=== PATIENT | female | born 1955 | race Caucasian/White ===

== ENCOUNTER 2022-01-28 06:24 | Observation (INO) | payer OTHER ==
[2022-01-26 10:36] LABS: BASOPHILS % (AUTO) 0.8 % (0.0-5.0); LYMPHOCYTES % (AUTO) 20.9 % (21.0-51.0); MEAN CORPUSCULAR HEMOGLOBIN 32.6 pg (27.0-33.0); MEAN CORPUSCULAR HGB CONC 33.5 g/dL (32.0-36.0); MEAN CORPUSCULAR VOLUME 97.5 fL (79-99); MONOCYTES % (AUTO) 4.7 % (3.0-13.0); NEUTROPHILS % (AUTO) 72.6 % (40.0-77.0); PLATELET COUNT (AUTO) 205 K/uL (130-400); RED BLOOD CELL COUNT(AUTO) 4.72 MIL/uL (4.00-5.50); RED CELL DISTRIBUTION WIDTH 14.2 % (11.0-15.5); WHITE BLOOD COUNT (AUTO) 7.2 K/uL (4.8-10.8)
[2022-01-26 10:44] LABS: CREATININE 0.9 mg/dL (0.5-1.5); POTASSIUM 3.7 mmol/L (3.5-5.1)
[2022-01-26 10:48] LABS: INR 1.04 (0.85-1.15); PROTHROMBIN TIME 11.3 SEC (9.6-11.6)
[2022-01-26 10:48] LABS: APPEARANCE,URINE Cloudy (CLEAR); BILIRUBIN,URINE Negative (NEGATIVE); COLOR,URINE Dark Yellow (YELLOW); GLUCOSE, URINE (UA) Negative (NEGATIVE); KETONES,URINE Trace mg/dL (NEGATIVE); LEUKOCYTE ESTERASE ,URINE Moderate (NEGATIVE); NITRATE,URINE Negative (NEGATIVE); OCCULT BLOOD,URINE Nonhemolyzed Trace (NEGATIVE); PROTEIN,URINE Trace mg/dL (NEGATIVE)
[2022-01-26 11:27] LABS: BACTERIA,URINE Rare /HPF (None Seen); RBC,URINE 0-1 /HPF (0-1); SQUAMOUS EPITHELIAL CELL,UR Few /HPF (0-2)
[2022-01-27 09:41] VITALS: BP 156/84
[~2022-01-28] VITALS: Ht 165.1 cm; Wt 74.4 kg
[2022-01-28] VITALS (24 sets, daily range): BP systolic 118–176; BP diastolic 51–101
[2022-01-28] MEDS: CEFAZOLIN SODIUM 1 GM VIAL IVP SCH ×2 (06:00→10:39)
[~2022-01-28 06:24] MED LIST: IBUP-2077 PO
[2022-01-28] MEDS ORDERED: LACTATED RINGERS 1000ML 1,000 ML IV ONE (07:37)
[2022-01-28] MEDS: GENTAMICIN SULFATE 240 MG in 0.9%NACL 100ML 100 ML IV SCH ×2 (07:55→15:26)
[2022-01-28] MEDS ORDERED: KETOROLAC 15MG/ML VIAL (15MG/ML) ONE (08:31)
[2022-01-28] MEDS ORDERED: ACETAMINOPHEN 500 MG TABLET ONE (08:31)
[2022-01-28] MEDS ORDERED: CELECOXIB 200 MG CAP ONE (08:32)
[2022-01-28] MEDS ORDERED: METOCLOPRAMIDE 10 MG/2 ML VIAL ONE (08:33)
[2022-01-28] MEDS ORDERED: TRANEXAMIC ACID 1000MG/10ML ONE ×2 (09:14→14:30)
[2022-01-28] MEDS ORDERED: SUCCINYLCHOLINE 200MG/10ML SYR ONE (10:03)
[2022-01-28] MEDS ORDERED: LIDOCAINE PF 100MG/5ML (2%) SYRINGE 5ML ONE ×2 (10:03→10:05)
[2022-01-28] MEDS ORDERED: SUCCINYLCHOLINE CHLORIDE 20 MG/ML 10 ML VIAL ONE ×2 (10:03→10:05)
[2022-01-28] MEDS ORDERED: GLYCOPYRROLATE 1 MG/5 ML SYRINGE ONE (10:04)
[2022-01-28] MEDS ORDERED: MIDAZOLAM HCL 1 MG/ML 2ML VIAL ONE (10:04)
[2022-01-28] MEDS ORDERED: PROPOFOL 10 MG/ML 20ML VIAL IV ONE (10:04)
[2022-01-28] MEDS ORDERED: ONDANSETRON 4MG INJ ONE (10:04)
[2022-01-28] MEDS ORDERED: NEOSTIGMINE 5MG/5ML SYR IV ONE (10:04)
[2022-01-28] MEDS ORDERED: FENTANYL CITRATE PF 50 MCG/1 ML 2ML VIAL ONE (10:05)
[2022-01-28] MEDS ORDERED: ROCURONIUM 10MG/1ML SYR 10 MG/ML ML ONE (10:05)
[2022-01-28] MEDS ORDERED: ROPIVACAINE 0.5% 5MG/ML 30ML IJ ONE (10:06)
[2022-01-28] MEDS: CEFAZOLIN SODIUM 1 GM VIAL ONE ×2 (11:22→11:24)
[2022-01-28] MEDS ORDERED: OXYCODONE HCL 5 MG TAB PO PRN ×2 (13:30)
[2022-01-28] MEDS: ACETAMINOPHEN 500 MG TABLET PO SCH ×2 (13:30→21:50)
[2022-01-28] MEDS ORDERED: TRAMADOL HCL 50 MG TABLET PO PRN (13:30)
[2022-01-28] MEDS ORDERED: KETOROLAC 15MG/ML VIAL (15MG/ML) IV PRN (13:30)
[2022-01-28] MEDS: 0.9%NACL 1000ML 1,000 ML IV SCH ×2 (13:30→23:30)
[2022-01-28] MEDS ORDERED: ONDANSETRON 4MG INJ IVP PRN (13:30)
[2022-01-28] MEDS ORDERED: KCL 20 MEQ ERTAB PO PRN (13:30)
[2022-01-28] MEDS ORDERED: DiphenhydrAMINE HCL 50 MG/ML VIAL IVP PRN (13:30)
[2022-01-28] MEDS ORDERED: POTASSIUM CHLORIDE 10% ELIXIR 20 MEQ/15 ML UDCUP PO PRN (13:30)
[2022-01-28] MEDS ORDERED: LIDOCAINE HCL-MPF 1% 2ML VIAL IV PRN (13:30)
[2022-01-28] MEDS ORDERED: POTASSIUM CHLORIDE 20MEQ/100ML 100 ML IV PRN (13:30)
[2022-01-28] MEDS ORDERED: FERROUS FUMARATE 324 MG TABLET PO PRN (13:30)
[2022-01-28] MEDS ORDERED: LABETALOL 20MG SYG IV ONE (14:18)
[2022-01-28] MEDS ORDERED: MEPERIDINE-PF 25 MG/ML SYG ONE (14:39)
[2022-01-28] MEDS ORDERED: CEFAZOLIN SODIUM 1 GM VIAL IVP SCH (18:30)
[2022-01-28] MEDS: ASPIRIN 81 MG EC TAB PO SCH (21:48)
[2022-01-28] MEDS: CELECOXIB 200 MG CAP PO SCH (21:48)
[2022-01-28] MEDS: FAMOTIDINE 20MG TAB PO SCH (21:48)
[2022-01-28] MEDS: PREGABALIN 25 MG CAP PO SCH (21:48)
[2022-01-29] VITALS: BP 130/78
[2022-01-29 04:00] VITALS: BP 140/84
[2022-01-29 05:03] LABS: HEMATOCRIT 31.1 % (36-48); MEAN CORPUSCULAR HEMOGLOBIN 32.7 pg (27.0-33.0); MEAN CORPUSCULAR HGB CONC 34.4 g/dL (32.0-36.0); MEAN CORPUSCULAR VOLUME 95.1 fL (79-99); RED BLOOD CELL COUNT(AUTO) 3.27 MIL/uL (4.00-5.50); RED CELL DISTRIBUTION WIDTH 14.3 % (11.0-15.5)
[2022-01-29 05:05] LABS: CREATININE 0.8 mg/dL (0.5-1.5); POTASSIUM 3.6 mmol/L (3.5-5.1)
[2022-01-29] MEDS: ACETAMINOPHEN 500 MG TABLET PO SCH ×3 (05:30→22:00)
[2022-01-29 07:30] VITALS: BP 151/72
[2022-01-29] MEDS: FAMOTIDINE 20MG TAB PO SCH ×2 (08:50→21:58)
[2022-01-29] MEDS: ASPIRIN 81 MG EC TAB PO SCH ×2 (08:50→21:58)
[2022-01-29] MEDS: POLYETHYLENE GLYCOL 3350 17 GM POWD.PACK PO SCH (08:51)
[2022-01-29] MEDS: CELECOXIB 200 MG CAP PO SCH ×2 (08:51→21:58)
[2022-01-29] MEDS: PREGABALIN 25 MG CAP PO SCH ×2 (08:51→21:58)
[2022-01-29] MEDS: CALCIUM CARB 500MG PO PRN (08:51)
[2022-01-29] MEDS: 0.9%NACL 1000ML 1,000 ML IV SCH (08:56)
[2022-01-29 11:00] VITALS: BP 138/77
[2022-01-29 16:00] VITALS: BP 139/78
[2022-01-29 20:00] VITALS: BP 149/82
[2022-01-30] VITALS: BP 113/76
[2022-01-30 04:00] VITALS: BP 133/86
[2022-01-30] MEDS: ACETAMINOPHEN 500 MG TABLET PO SCH ×3 (05:38→20:56)
[2022-01-30] MEDS: CALCIUM CARB 500MG PO PRN (05:38)
[2022-01-30 07:30] VITALS: BP 152/73
[2022-01-30] MEDS: ASPIRIN 81 MG EC TAB PO SCH ×2 (09:02→20:50)
[2022-01-30] MEDS: CELECOXIB 200 MG CAP PO SCH ×2 (09:02→20:50)
[2022-01-30] MEDS: POLYETHYLENE GLYCOL 3350 17 GM POWD.PACK PO SCH (09:02)
[2022-01-30] MEDS: FAMOTIDINE 20MG TAB PO SCH ×2 (09:02→20:50)
[2022-01-30] MEDS: PREGABALIN 25 MG CAP PO SCH ×2 (09:03→20:50)
[2022-01-30 11:00] VITALS: BP 121/78
[2022-01-30 16:00] VITALS: BP 127/82
[2022-01-30] MEDS ORDERED: AEC81 PO (20:27)
[2022-01-30] MEDS ORDERED: HYDR-4060 PO (20:27)
[2022-01-31] MEDS ORDERED: BISACODYL 10 MG SUPP.RECT RC PRN (13:30)
== END 2022-01-30 21:17 | disposition home health service (06) ==
LOC: DAH 06:24 → DAHIP 06:25 → DAH 06:25 → 4BH 14:55
PROVIDERS: ADMIT Orthopaedic Surgery; ATTEND Orthopaedic Surgery
DX: M16.12 Unilateral primary osteoarthritis, left hip (principal); Z20.822 Contact with and (suspected) exposure to COVID-19; M21.70 Unequal limb length (acquired), unspecified site; G89.29 Other chronic pain; M25.552 Pain in left hip; D62 Acute posthemorrhagic anemia; F17.200 Nicotine dependence, unspecified, uncomplicated; Z79.82 Long term (current) use of aspirin; Z96.641 Presence of right artificial hip joint; Z79.899 Other long term (current) drug therapy; Z98.890 Other specified postprocedural states
CPT/HCPCS: 27130; 36415 ×2; 64450; 73503; 76942; 80048 ×2; 81001; 85025; 85027; 85610; 87088; 87635; 87641; 96365; 96366; 96375 ×3; 97039 ×3; 97116 ×3; 97161; 97530; A4213; A4215; A4221; A4222; A4223; A4649 ×5; A4657; A4663; A9272; C1713; C1776; C9803; G0378 ×53; J0330 ×3; J0690 ×4; J1580; J1885; J2001 ×2; J2175; J2250; J2405 ×2; J2704; J2710; J2765; J2795; J3010; J3490 ×3; J7030; J7120; 96374

== ENCOUNTER 2025-04-29 17:21 | Emergency (ER) | payer OTHER ==
[~2025-04-29] VITALS: Ht 165.1 cm; Wt 70.3 kg
[~2025-04-29 17:21] MED LIST changes: +AEC81 PO; +HYDR-4060 PO; -IBUP-2077 PO
[2025-04-29 17:45] VITALS: BP 134/68; PULSE 82; RESP 16; TEMP 98.3; O2SAT 98
--- NOTE | 2025-04-29 17:48 | ERN ---
General Chief Complaint: FOOT INJURY/PAIN Stated Complaint: RT FOOT PAIN Time Seen by MD: 17:22 Time Seen by Midlevel: 17:22 Source: patient History of Present Illness Initial Comments The patient is a 70-year-old female presenting to the emergency department with pain to her right lateral foot. Patient states she accidentally twisted her ankle several days ago and now has pain to the area. She denies any other symptoms. Denies any other injury. Allergies: Coded Allergies: No Known Drug Allergies (Verified Allergy, Unknown, 01/26/22) Home Meds Active Scripts Ibuprofen (Ibuprofen 800 mg Tab) 800 Mg Tab, 800 MG PO TID PRN for PAIN LEVEL 1 TO 5 for 5 Days, #15 TAB 0 Refills Prov:SOLE PARISI 04/29/25 Aspirin (ASPIRIN 81 MG ECTAB) 81 Mg Ectab, 81 MG PO BID, #60 TAB.EC 0 Refills Prov:SHANICE BOYER MD 01/30/22 Hydrocodone/Acetaminophen (Hydrocodon-Acetaminophen 5-325) 1 Each Tablet, 1-2 EA CH PO Q6HPRN PRN for ACUTE POST-OP PAIN(G89.18), #56 TAB 0 Refills Prov:SHANICE BOYER MD 01/30/22 Past Medical History Past Medical History: Unknown Past Surgical History: Other Surgical History Other: IBAN HIP, ROS Dictation CONSTITUTIONAL: Negative except for HPI HEAD/FACE: Negative except for HPI EENT: Negative except for HPI RESPIRATORY: Negative except for HPI GASTROINTESTINAL/ABDOMINAL: Negative except for HPI GENITOURINARY: Negative except for HPI MUSCULOSKELETAL: Negative except for HPI INTEGUMENTARY: Negative except for HPI NEUROLOGICAL/PSYCH: Negative except for HPI HEMATOLOGIC/LYMPHATIC: Negative except for HPI All Systems Negative, Except as noted above. 13 point review of systems assessed and all negative except for above. Physical Exam Physical Exam Dictation Vital Signs reviewed General Appearance: Alert, oriented x 3, no acute distress, well developed, nourished. Head and Face: non-traumatic. Eyes: PERRL, pink conjunctivas, eyelid no trauma, anterior chamber with arcus senilis. Ears: Pinnas intact and no signs of trauma or erythema ear canals clear and no discharge TM no erythema Nose: No discharge, no bleeding. Oropharynx: Mouth normal, tongue pink, pharynx clear,no erythema, tonsils no exudates, no abscesses noted, mucous membrane moist Neck: Supple, non-tender, no thyromegaly, no masses, no JVD, no bruits Breast:Deferred Chest:No tenderness, no crepitus, no paradoxical movement, no retractions Lungs:Clear, well-ventilated, symmetric, no rales, no wheezing, no rhonchi, no stridor, good breath sounds bilaterally Heart: Regular rate, regular rhythm, no murmur, no gallops Vascular: no peripheral edema, Abdomen: Soft, positive bowel sounds, nondistended, no guarding, nontender, no rebound, no masses no hepatomegaly, no splenomegaly, no Oliva's sign, no hernias. Rectal: Deferred Genital: Deferred Neurological: Normal speech, motor function intact, sensory function intact Musculoskeletal: Neck nontender, full range of motion, back nontender, full range of motion, Extremities: There is tenderness with mild swelling to the lateral aspect of the foot overlying the 5th metatarsal, range of motion is intact, right lower extremity is neurovascularly intact with good distal pulses and normal capillary refill of less than 2 seconds Skin: Color pink, dry, no turgor, no rash, no lacerations, no abrasions, no contusions. Lymphatic: Deferred MDM MDM: The patient is a 70-year-old female presenting to the emergency department with pain to her right lateral foot. Patient states she accidentally twisted her ankle several days ago and now has pain to the area. She denies any other symptoms. Denies any other injury. On physical examination patient has tenderness with mild swelling to the lateral aspect of the foot overlying the 5th metatarsal, range of motion is intact, right lower extremity is neurovascularly intact with good distal pulses and normal capillary refill of less than 2 seconds. X-ray of the right foot reveals a 5th metatarsal fracture. Posterior ankle splint was placed and she was referred to education specialist. Differential diagnosis: Fracture, contusion, dislocation There are no social concerns with this patient. Prescription drug management Prescriptions will include: Tylenol and Motrin as needed Medical management and examination interpretation discussions were had by me with other qualified healthcare professionals as indicated for the patient's care. ED Course Orders Procedure Category Date Status Time Foot Comp 3+Vws Rt RAD 04/29/25 Taken 17:24 Ankle Comp 3vws Rt RAD 7/13/25 Taken 17:24 *Nursing CPOE 04/29/25 Transmitted Communication: 17:48 Vital Signs Date Time Temp Pulse Resp B/P (MAP) Pulse Ox O2 Delivery O2 Flow Rate FiO2 04/29/25 17:45 98.2 82 16 134/68 98 Room Air* 0 21 04/29/25 17:22 98.8 84 18 133/70 98 Nasal Cannula 0 DX & DISP Disposition: Discharge Departure Impression: Primary Impression: Fracture of fifth metatarsal bone of right foot Condition: Stable Scripts Ibuprofen (Ibuprofen 800 mg Tab) 800 Mg Tab 800 MG PO TID PRN for PAIN LEVEL 1 TO 5 for 5 Days, #15 TAB 0 Refills Prov: SOLE PARISI 04/29/25 Additional Instructions: You have a fracture to your right 5th metatarsal. You will need to follow up with an education specialist for further evaluation. Follow up with your PCP in 1-2 days for repeat evaluation. Return to the ER for any new or worsening symptoms Referrals: VALENTIN CANELA MD (PCP) ZACK COBB MD Time of Disposition: 17:47 I have reviewed the case, and I agree with, Diagnosis and Plan I performed the substantive portion of the visit. I have reviewed and personally made and approve the management plan that is documented in the note by myself or the JANEL. I acknowledge for responsibility for the patient's management plan. SOLE PARISI Apr 29, 2025 17:48
[2025-04-29] MEDS ORDERED: IBUP-2077 PO (17:52)
--- NOTE | 2025-04-29 18:44 | HMCIMG ---
EXAM: 1. CR right ankle, 3 View. 2. CR right foot, 3 views. CLINICAL HISTORY: r/o fx COMPARISON: None provided. FINDINGS: Mildly displaced, extra-articular fracture of the base of the fifth metatarsal. There is no additional fracture appreciated. Joint spaces remain anatomically aligned. There is associated soft tissue edema at the IMPRESSION: 1. Mildly displaced, extra-articular fracture of the base of the fifth metatarsal with associated soft tissue edema. /[place]
--- NOTE | 2025-04-29 18:46 | HMCIMG ---
EXAM: 1. CR right ankle, 3 View. 2. CR right foot, 3 views. CLINICAL HISTORY: r/o fx COMPARISON: None provided. FINDINGS: Mildly displaced fracture of the base of the fifth metatarsal with intra-articular extension. There is no additional fracture appreciated. Joint spaces remain anatomically aligned. There is associated soft tissue edema at the IMPRESSION: 1. Mildly displaced, intra-articular fracture of the base of the fifth metatarsal with associated soft tissue edema. /[place]
== END 2025-04-29 18:08 | disposition home or self-care (01) ==
LOC: EDH 17:21
DX: S92.351A Displaced fracture of fifth metatarsal bone, right foot, initial encounter for closed fracture (principal); Z79.82 Long term (current) use of aspirin; X50.1XXA Overexertion from prolonged static or awkward postures, initial encounter; Y93.89 Activity, other specified; Y92.89 Other specified places as the place of occurrence of the external cause; Y99.8 Other external cause status
CPT/HCPCS: 29515; 73610; 73630; 99284

== ENCOUNTER 2025-05-14 06:40 | Day surgery (SDC) | payer OTHER ==
[2025-05-11 13:40] LABS: IMMATURE GRANULOCYTE ABSOLUTE 0.05 K/uL (0-1); NUCLEATED RED BLOOD CELLS 0.0 % (0.0-0.19); PLATELET COUNT (AUTO) 198 K/uL (130-400); RED BLOOD CELL COUNT(AUTO) 4.60 MIL/uL (4.00-5.50); RED CELL DISTRIBUTION WIDTH 14.6 % (11.0-15.5); WHITE BLOOD COUNT (AUTO) 7.6 K/uL (4.8-10.8)
[2025-05-11 13:50] LABS: CREATININE 0.6 mg/dL (0.5-1.0); GLOMERULAR FILTR. RATE CALC 97.0 mL/min (>90); GLUCOSE,RANDOM 109.0 mg/dL (70-105); INR 1.0 (0.85-1.15); SODIUM SERUM 138.0 mmol/L (136-145); UREA NITROGEN, BLOOD 17.0 mg/dL (7-18)
[2025-05-11 13:56] VITALS: BP 107/88; PULSE 74; RESP 16; TEMP 97.7
--- NOTE | 2025-05-12 11:03 | EKG ---
[facility] Test Date: 2025-05-11 Test Time: 13:36:42 Pat Name: BUZZ DACOSTA Department: [facility] Room: Gender: F Coding Analyst: [id number] : 1955 Requested By: MIA XIE Order Number: [id number] Reading MD: Alfonso Cardoso Measurements Intervals [place]ard Rate: 74 P: 80 WY: 146 QRS: 51 QRSD: 71 T: 65 QT: 413 QTc: 458 Interpretive Statements Sinus rhythm No previous ECG available for comparison Electronically Signed On 05-13-2025 23:58:51 CDT by Alfonso Cardoso Please click the below link to view image of tracing.
[2025-05-14] VITALS (18 sets, daily range): BP systolic 116–196; BP diastolic 60–105; PULSE 18–98; RESP 12–20; TEMP 96.7–97.7
[~2025-05-14] VITALS: Ht 165.1 cm; Wt 73.1 kg
[~2025-05-14 06:40] MED LIST changes: +ACET-2247 PO; -AEC81 PO; -HYDR-4060 PO; +IBUP-2077 PO
[2025-05-14] MEDS: LACTATED RINGERS 1000ML 1,000 ML IV ONE (07:15)
[2025-05-14] MEDS ORDERED: LIDOCAINE PF 100MG/5ML (2%) SYRINGE 5ML ONE (07:15)
[2025-05-14] MEDS ORDERED: NEOSTIGMINE METHYLSULFATE 1MG/ML IV ONE (07:16)
[2025-05-14] MEDS ORDERED: GLYCOPYRROLATE 0.2 MG/ML 5 ML VIAL ONE (07:16)
[2025-05-14] MEDS ORDERED: SUCCINYLCHOLINE CHLORIDE 20 MG/ML 10 ML VIAL ONE (07:16)
[2025-05-14] MEDS ORDERED: MIDAZOLAM HCL 1 MG/ML 2ML VIAL ONE (07:17)
[2025-05-14] MEDS ORDERED: FAMOTIDINE 20MG VIAL IV ONE (08:19)
[2025-05-14] MEDS ORDERED: ALBUTEROL INHALER 90MCG/INH IH ONE (09:27)
[2025-05-14] MEDS ORDERED: HYDR-4060 PO (10:45)
[2025-05-14] MEDS ORDERED: DOCU-116 PO (10:45)
--- NOTE | 2025-05-14 10:54 | OP ---
Operative Note: DATE OF PROCEDURE: 05/14/25 SURGEON: MIA XIE MD TRAP SETTER: Pretty Schwartz ANESTHESIA: General ANESTHESIOLOGIST/MEDIA LIBRARIAN: Debra Bradley CRNA PREOPERATIVE DIAGNOSIS: Right 5th metatarsal base fracture POSTOPERATIVE DIAGNOSIS: Right 5th metatarsal base fracture PROCEDURE: Open reduction internal fixation right 5th metatarsal base fracture ESTIMATED BLOOD LOSS: 2 cc INDICATIONS: 70-year-old female status post ground level fall approximately 10 days ago sustaining an injury to her right foot. Patient presented to our clinic with a displaced right 5th metatarsal base fracture with mild comminution. After discussion of the risks, benefits, and alternatives the patient voluntarily agreed to undergo the aforementioned procedure. DESCRIPTION OF PROCEDURE: Patient was properly identified in the preoperative holding area. Surgical site marking was verified and surgery consent reviewed. The patient was then taken to the operating room and placed in supine position on the OR table. After induction of general anesthesia, preoperative antibiotics were given, all bony prominences were well-padded, and a well padded tourniquet was applied but not inflated at this time. The right lower extremity was then prepped and draped in usual sterile fashion. Surgical time out was done verifying correct surgery, side, site, and location to be performed. We then began the procedure by exsanguinating the limb with an Esmarch and inflating the tourniquet to 250 mm Hg. We made a 4 cm long incision of the lateral were with the base of the 5th metatarsal. We dissected carefully through the soft tissue to identify the fracture fragments. We placed our soft tissue retractors to hold the plantar tendon out of the way. We are then able to visualize the fracture site and distract the fracture fragments. Using curette and a small rongeur we debrided interposed soft tissue and fibrinous material from within the fracture site. We noted there was a nondisplaced medial fracture as well. We then obtained a reduction held this in place with a temporary K-wire fixation. We verified reduction under two-view fluoroscopy. We then placed a 2nd K-wire for a cannulated developmental therapist the shaft of the bone from the lateral fracture fragment. We verified placement of this under two- view fluoroscopy as well we then drilled the near cortex of the wire insertion site. We measured for the length of our screw and placed a 4.0 mm cannulated 48 mm long screw over our wire. We visualize this as we began to get some compression across the fracture site. We had to remove the provisional K-wire fixation of the allow for the screw head to settle. It appeared we had a mild loss of reduction at that time. We tightened the screw until we saw some compression of the fracture site but did not over tightened to avoid fragmentation. We then removed the guidewire for the screw. We obtained our final AP and lateral fluoroscopic images. We thoroughly irrigated out the wound with normal saline. We then repaired the wound using a 2-0 Vicryl in subcutaneous tissue and a running subcuticular 3-0 Monocryl for the skin. Dermabond was applied over this. Sterile soft dressing with 4x4s, cast padding, and a posterior splint with a Tristan wrap were applied. The tourniquet was deflated. The patient was awakened from anesthesia and taken to the recovery room in stable condition. MIA XIE MD May 14, 2025 10:54
--- NOTE | 2025-05-14 13:44 | NUR ---
Full and complete discharge instructions given to Patient and Friend, Les both verbally and in writing. Explained Surgical procedure precautions and follow up. Right Foot site/dressing site clean dry and intact. No evidence of bleeding, bruising or hematoma. PT fitted boot to foot and trained on Walker use. All questions answered. PIV removed with catheter tip intact. Friend at bedside appearing supportive. W/C to POV with Friend to home
== END 2025-05-14 13:35 | disposition home or self-care (01) ==
LOC: DAH 06:40
PROVIDERS: ATTEND Student in an Organized Health Care Education/Training Program
DX: S92.351A Displaced fracture of fifth metatarsal bone, right foot, initial encounter for closed fracture (principal); M79.671 Pain in right foot; R26.89 Other abnormalities of gait and mobility; F41.9 Anxiety disorder, unspecified; Z96.643 Presence of artificial hip joint, bilateral; W22.8XXA Striking against or struck by other objects, initial encounter; Y93.89 Activity, other specified; Y92.89 Other specified places as the place of occurrence of the external cause; Y99.8 Other external cause status
CPT/HCPCS: 82040; 80048; 85025; 85610; 85730; 84134; 86140; 36415; 93005; 87641; 28485; 97161; 73620; 97116; 97530 ×2; C1713; A4649 ×2; J7120; J3490 ×3; J3010 ×3; J1100; J0330; J2003; J0360; J2250; J2704; J2405; J2710; J0665; J2371; J0690; A4930; A5120; A4215; A4223; A4213; A4222; A4221; A4663